=== PATIENT | male | born 1940 | race Caucasian/White ===

== ENCOUNTER 2019-08-08 16:11 | Inpatient (IN) ==
[2019-08-08] MEDS ORDERED: 0.9 % Sodium Chloride 500 ML IVC STA (16:26)
[2019-08-08] MEDS ORDERED: Piperacillin/Tazobactam 3.375 GM in 0.9 % Sodium Chloride Mini Bag 100 ML IVPB STA (16:42)
[2019-08-08 17:20] LABS: Basophils % 0.2 %; Eosinophils # 0.3 K/mcL (0.0-0.6); Eosinophils % 2.4 %; Hematocrit 44.9 % (37.5-50.1); Hemoglobin 13.8 g/dL (12.9-16.9); Immature Granulocytes % 0.8 % (0-4); Lymphocytes # 1.8 K/mcL (0.6-4.6); Lymphocytes % 14.8 %; Mean Corpuscular HGB Conc 30.7 g/dL (31.6-35.5); Mean Corpuscular Hemoglobin 27.6 pg (28.0-33.3); Mean Corpuscular Volume 89.8 fL (83.0-100.0); Mean Platelet Volume 11.2 fL (9.4-12.4); Monocytes # 1.2 K/mcL (0.0-1.3); Monocytes % 9.8 %; Neutrophils # 8.5 K/mcL (1.6-8.9); Platelet Count 275 K/mcL (140-400); Red Cell Distribution Width 16.6 % (11.5-14.5); White Blood Count 11.8 K/mcL (4.3-11.1)
[2019-08-08 17:21] LABS: Prothrombin Time 63.1 Seconds (9.4-12.1)
[2019-08-08 17:22] LABS: INR 5.5
[2019-08-08] MEDS ORDERED: Azithromycin 500 MG in 0.9 % Sodium Chloride 250 ML IVPB STA (17:26)
[2019-08-08 17:35] LABS: Alanine Aminotransferase 42 Units/L (7-52); Albumin 3.1 g/dL (3.5-5.7); Alkaline Phosphatase 97 Units/L (34-104); Aspartate Amino Transferase 31 Units/L (13-39); BUN/Creatinine Ratio 30 (6-26); Bilirubin,Direct 0.4 mg/dL (0.0-0.2); Bilirubin,Indirect 0.6 mg/dL (0.0-1.0); Blood Urea Nitrogen 41 mg/dL (8-23); Calcium 8.7 mg/dL (8.6-10.3); Carbon Dioxide 24 mEq/L (23-29); Chloride 108 mEq/L (98-107); Ethanol < 10 mg/dL (Less than 10); Globulin 3.2 g/dL (2.4-3.5); Glucose 119 mg/dL (70-105); Osmolality,Calculated 301 (280-300); Potassium 4.1 mEq/L (3.5-5.1); Sodium 140 mEq/L (136-145); Total Protein 6.3 g/dL (6.4-8.9); Troponin I 0.03 ng/mL (< 0.04); eGFR For African Americans > 60 (> 60); eGFR For Non-African Americans 51 (> 60)
[2019-08-08 18:05] LABS: Bilirubin,Urine Small (Negative); Blood,Urine Negative (Negative); Clarity,Urine Cloudy (Clear); Color,Urine Yellow (Yellow); Glucose,Urine (UA) Normal (Normal); Ketones,Urine Negative (Negative); Leukocyte Esterase,Urine Negative (Negative); Nitrite,Urine Negative (Negative); Protein,Urine Trace mg/dL (Neg-Trace); Specific Gravity,Urine 1.026 (1.010-1.025); Urobilinogen,Urine Normal (Normal)
[2019-08-08] MEDS ORDERED: Naloxone 0.4 MG/ML INJ IVP PRN (18:06)
[2019-08-08] MEDS ORDERED: Ondansetron 4 MG/2 ML VIAL IVP PRN (18:06)
[2019-08-08 18:09] LABS: Bacteria,Urine None Seen per hpf (None-Few); Hyaline Casts,Urine None Seen per lpf (None-Few); RBC,Urine 0-3 per hpf (0-3); Squamous Epithelial Cell,Urine Many per lpf (None-Few); WBC,Urine 0-3 per hpf (0-3)
[2019-08-08 18:10] LABS: Amphetamine Screen,Urine Negative ng/mL (Cutoff=1000); Barbiturate Screen,Urine Negative ng/mL (Cutoff=200); Benzodiazepines Screen,Urine Negative ng/mL (Cutoff=200); Cannabinoid Screen,Urine Negative ng/mL (Cutoff = 50); Cocaine Screen,Urine Negative ng/mL (Cutoff= 300); Opiate Screen,Urine Negative ng/mL (Cutoff=300); Phencyclidine Screen,Urine Negative ng/mL (Cutoff=25)
[2019-08-08] MEDS ORDERED: *HR* Dextrose 50 % in Water (Syg) 50 ML SYRINGE IVP PRN (18:12)
[2019-08-08] MEDS ORDERED: Dextrose Gel 15 GM/37.5 ML TUBE PO PRN ×2 (18:12)
[2019-08-08] MEDS ORDERED: D5% in Water 1,000 ML IVC PRN (18:12)
[2019-08-08] MEDS ORDERED: Ipratropium/Albuterol Neb 3 ML IH PRN (18:15)
[2019-08-08] MEDS ORDERED: 0.9 % Sodium Chloride 1,000 ML IVC SCH (18:15)
[2019-08-08] MEDS ORDERED: Aminoglycoside Consult 1 EACH MC ONE (19:00)
[2019-08-08] MEDS: Insulin LISPRO 300 UNITS/3 ML VIAL SQ SCH ×2 (20:15→20:16)
[2019-08-08] MEDS ORDERED: 0.9 % Sodium Chloride 1,000 ML IV ONE (20:30)
[2019-08-08 21:08] LABS: Adenovirus Not Detected (Not Detect); Bordetella Pertussis Not Detected (Not Detect); Chlamydophila pneumoniae Not Detected (Not Detect); Coronavirus 229E Not Detected (Not Detect); Coronavirus HKU1 Not Detected (Not Detect); Coronavirus NL63 Not Detected (Not Detect); Coronavirus OC43 Not Detected (Not Detect); Human Metapneumovirus Not Detected (Not Detect); Human Rhinovirus/Enterovirus Not Detected (Not Detect); Influenza A Subtype 2009 H1 Not Detected (Not Detect); Influenza B Not Detected (Not Detect); Mycoplasma pneumoniae Not Detected (Not Detect); Parainfluenza Virus 1 Not Detected (Not Detect); Parainfluenza Virus 2 Not Detected (Not Detect); Parainfluenza Virus 3 Not Detected (Not Detect); Parainfluenza Virus 4 Not Detected (Not Detect); Respiratory Syncytial Virus Not Detected (Not Detect)
[2019-08-08] MEDS: Metoprolol XL (24 HR) Succ 50 MG TAB.ER.24H PO SCH (21:53)
[2019-08-08] MEDS: Ipratropium/Albuterol Neb 3 ML IH SCH (21:54)
[2019-08-08] MEDS: *HR* Metoprolol 5 MG/5 ML VIAL IVP PRN (23:16)
[2019-08-09] MEDS: Piperacillin/Tazobactam 3.375 GM in 0.9 % Sodium Chloride Mini Bag 100 ML IVPB SCH ×4 (00:10→22:55)
[2019-08-09] MEDS: Ipratropium/Albuterol Neb 3 ML IH SCH ×4 (03:26→22:00)
[2019-08-09] MEDS: *HR* Metoprolol 5 MG/5 ML VIAL IVP PRN (03:30)
[2019-08-09 05:43] LABS: Basophils % 0.2 %; Eosinophils # 0.1 K/mcL (0.0-0.6); Eosinophils % 1.1 %; Hematocrit 44.1 % (37.5-50.1); Hemoglobin 13.5 g/dL (12.9-16.9); Immature Granulocytes % 0.6 % (0-4); Lymphocytes # 1.3 K/mcL (0.6-4.6); Lymphocytes % 10.5 %; Mean Corpuscular HGB Conc 30.6 g/dL (31.6-35.5); Mean Corpuscular Hemoglobin 27.8 pg (28.0-33.3); Mean Corpuscular Volume 90.9 fL (83.0-100.0); Mean Platelet Volume 11.6 fL (9.4-12.4); Monocytes # 1.3 K/mcL (0.0-1.3); Monocytes % 10.4 %; Neutrophils # 9.6 K/mcL (1.6-8.9); Platelet Count 262 K/mcL (140-400); Red Blood Count 4.85 M/mcL (4.19-5.50); Red Cell Distribution Width 16.7 % (11.5-14.5); Segmented Neutrophils % 77.2 %; White Blood Count 12.4 K/mcL (4.3-11.1)
[2019-08-09] MEDS: Metoprolol XL (24 HR) Succ 50 MG TAB.ER.24H PO SCH (05:48)
[2019-08-09 05:54] LABS: INR 3.3; Prothrombin Time 37.2 Seconds (9.4-12.1)
[2019-08-09 06:04] LABS: Calcium 8.3 mg/dL (8.6-10.3); Magnesium 1.6 mg/dL (1.6-2.6); Phosphorous 3.2 mg/dL (2.7-4.5); Potassium 4.1 mEq/L (3.5-5.1)
[2019-08-09] MEDS: 0.9 % Sodium Chloride 1,000 ML IVC SCH ×2 (07:42→16:27)
[2019-08-09] MEDS: Insulin LISPRO 300 UNITS/3 ML VIAL SQ SCH ×4 (07:42→20:33)
[2019-08-09] MEDS: Metoprolol XL (24 HR) Succ 25 MG TAB.ER.24H PO SCH (10:21)
[2019-08-09] MEDS ORDERED: Haloperidol Lactate 5 MG/ML VIAL IVP ONE (11:20)
[2019-08-09] MEDS: DilTIAZem 50 MG in 0.9 % Sodium Chloride 40 ML IVC SCH ×3 (12:23→22:49)
[2019-08-09] MEDS ORDERED: Haloperidol Lactate 5 MG/ML VIAL IVP PRN (13:06)
[2019-08-09] MEDS ORDERED: *HR* LORazepam 2 MG/ML VIAL IVP ONE (21:26)
[2019-08-09] MEDS ORDERED: Furosemide 20 MG/2 ML VIAL IVP ONE (21:45)
[2019-08-09] MEDS ORDERED: *HR* LORazepam 2 MG/ML VIAL IVP PRN (23:31)
[2019-08-09] MEDS ORDERED: *HR* LORazepam 2 MG/ML VIAL IM STA (23:44)
[2019-08-10 02:55] LABS: Hematocrit 44.1 % (37.5-50.1); Hemoglobin 13.5 g/dL (12.9-16.9); Mean Corpuscular HGB Conc 30.6 g/dL (31.6-35.5); Mean Corpuscular Hemoglobin 27.4 pg (28.0-33.3); Mean Corpuscular Volume 89.5 fL (83.0-100.0); Mean Platelet Volume 11.5 fL (9.4-12.4); Platelet Count 250 K/mcL (140-400); Red Blood Count 4.93 M/mcL (4.19-5.50); Red Cell Distribution Width 16.9 % (11.5-14.5); White Blood Count 11.9 K/mcL (4.3-11.1)
[2019-08-10 03:02] LABS: Prothrombin Time 22.9 Seconds (9.4-12.1)
[2019-08-10 03:17] LABS: Calcium 8.7 mg/dL (8.6-10.3); Magnesium 1.6 mg/dL (1.6-2.6)
[2019-08-10] MEDS: Ipratropium/Albuterol Neb 3 ML IH SCH ×4 (03:54→22:37)
[2019-08-10] MEDS: DilTIAZem 50 MG in 0.9 % Sodium Chloride 40 ML IVC SCH ×5 (03:54→23:21)
[2019-08-10 04:37] LABS: VBG HCO3 24 mEq/L (21-27); VBG PCO2 47 mmHg (41-51); VBG PH 7.32 pH Units (7.32-7.42); VBG PO2 75 mmHg (25-50)
[2019-08-10] MEDS ORDERED: Doxycycline 100 MG in 0.9 % Sodium Chloride Mini Bag 100 ML IVPB SCH (08:00)
[2019-08-10] MEDS: Insulin LISPRO 300 UNITS/3 ML VIAL SQ SCH ×4 (08:07→21:59)
[2019-08-10] MEDS: Piperacillin/Tazobactam 3.375 GM in 0.9 % Sodium Chloride Mini Bag 100 ML IVPB SCH ×3 (08:54→22:33)
[2019-08-10] MEDS: Loratadine 10 MG TABLET PO SCH (09:28)
[2019-08-10] MEDS: Metoprolol XL (24 HR) Succ 25 MG TAB.ER.24H PO SCH (09:29)
[2019-08-10] MEDS: Isosorbide MONOnitrate (24 HR) 30 MG TAB.ER.24H PO SCH (09:29)
[2019-08-10] MEDS ORDERED: Furosemide 40 MG/4 ML VIAL IVP ONE (16:07)
[2019-08-10 16:31] LABS: VBG HCO3 26 mEq/L (21-27); VBG PCO2 40 mmHg (41-51); VBG PH 7.42 pH Units (7.32-7.42); VBG PO2 179 mmHg (25-50)
[2019-08-10] MEDS: *HR* LORazepam 2 MG/ML VIAL IVP PRN (22:08)
[2019-08-10] MEDS: *HR* Metoprolol 5 MG/5 ML VIAL IVP PRN (23:40)
[2019-08-11] MEDS: DilTIAZem 50 MG in 0.9 % Sodium Chloride 40 ML IVC SCH ×2 (02:47→07:20)
[2019-08-11] MEDS: Levalbuterol Neb 1.25 MG/3 ML IH SCH ×4 (03:35→21:49)
[2019-08-11] MEDS: Ipratropium Neb 0.5 MG NEBULIZER IH SCH ×4 (03:35→21:49)
[2019-08-11] MEDS: *HR* LORazepam 2 MG/ML VIAL IVP PRN (03:52)
[2019-08-11 04:22] LABS: VBG HCO3 30 mEq/L (21-27); VBG PCO2 53 mmHg (41-51); VBG PH 7.37 pH Units (7.32-7.42); VBG PO2 64 mmHg (25-50)
[2019-08-11 04:23] LABS: Hematocrit 44.5 % (37.5-50.1); Hemoglobin 13.8 g/dL (12.9-16.9); Mean Corpuscular Hemoglobin 27.5 pg (28.0-33.3); Mean Corpuscular Volume 88.8 fL (83.0-100.0); Mean Platelet Volume 11.5 fL (9.4-12.4); Platelet Count 247 K/mcL (140-400); Red Blood Count 5.01 M/mcL (4.19-5.50); Red Cell Distribution Width 16.8 % (11.5-14.5); White Blood Count 12.4 K/mcL (4.3-11.1)
[2019-08-11 04:46] LABS: BUN/Creatinine Ratio 20 (6-26); Blood Urea Nitrogen 25 mg/dL (8-23); Calcium 8.2 mg/dL (8.6-10.3); Carbon Dioxide 29 mEq/L (23-29); Chloride 110 mEq/L (98-107); Glucose 151 mg/dL (70-105); Osmolality,Calculated 311 (280-300); Sodium 147 mEq/L (136-145); eGFR For African Americans > 60 (> 60); eGFR For Non-African Americans 54 (> 60)
[2019-08-11 04:50] LABS: ABG Base Excess 6 mEq/L (-2 to 3); ABG HCO3 31 mEq/L (21-27); ABG Oxygen Saturation 96 % (95-98); ABG PCO2 45 mmHg (35-45); ABG PH 7.45 pH Units (7.32-7.45); ABG PO2 81 mmHg (85-104); ABG TCO2 32 mEq/L (20-26); Blood Gas Modality BiLevel
[2019-08-11] MEDS: *HR* Metoprolol 5 MG/5 ML VIAL IVP PRN ×3 (05:31→22:41)
[2019-08-11] MEDS ORDERED: *HR* LORazepam 2 MG/ML VIAL IVP ONE (06:36)
[2019-08-11] MEDS ORDERED: *HR* LORazepam 2 MG/ML VIAL ONE (06:40)
[2019-08-11] MEDS ORDERED: Potassium Chloride 40 MEQ, Lidocaine 1% 2 ML in 0.9 % Sodium Chloride 500 ML IVPB ONE ×2 (07:20→17:00)
[2019-08-11] MEDS: Insulin LISPRO 300 UNITS/3 ML VIAL SQ SCH ×4 (08:37→20:54)
[2019-08-11] MEDS: Loratadine 10 MG TABLET PO SCH (08:44)
[2019-08-11] MEDS: Isosorbide MONOnitrate (24 HR) 30 MG TAB.ER.24H PO SCH (08:44)
[2019-08-11] MEDS ORDERED: *HR* Heparin 5,000 UNIT/ML VIAL IVP PRN ×2 (08:44)
[2019-08-11] MEDS: Metoprolol XL (24 HR) Succ 25 MG TAB.ER.24H PO SCH (08:44)
[2019-08-11] MEDS: Piperacillin/Tazobactam 3.375 GM in 0.9 % Sodium Chloride Mini Bag 100 ML IVPB SCH ×3 (08:58→23:55)
[2019-08-11 10:07] LABS: Heparin anti-factor XA UFH 0.08 IU/mL (0.30-0.70); INR 2.2; Prothrombin Time 25.4 Seconds (9.4-12.1)
[2019-08-11 10:10] LABS: Activated Partial Thrombo Time 28.8 Seconds (26.0-36.0)
[2019-08-11] MEDS: Heparin 25,000 UNIT/250 ML D5W 25,000 UNIT/250 ML IV.SOLN IVC SCH (11:14)
[2019-08-11] MEDS ORDERED: *HR* Digoxin 0.5 MG/2 ML AMPUL IVP SCH (13:40)
[2019-08-11] MEDS ORDERED: Amiodarone Premix 360 MG/200 ML BAG IVC ONE (13:56)
[2019-08-11 17:22] LABS: VBG HCO3 29 mEq/L (21-27); VBG PCO2 56 mmHg (41-51); VBG PH 7.32 pH Units (7.32-7.42); VBG PO2 59 mmHg (25-50)
[2019-08-11] MEDS: Amiodarone Premix 360 MG/200 ML BAG IVC SCH (22:19)
[2019-08-11] MEDS ORDERED: Furosemide 40 MG/4 ML VIAL IVP ONE (22:48)
[2019-08-12 03:50] LABS: VBG HCO3 27 mEq/L (21-27); VBG PCO2 53 mmHg (41-51); VBG PH 7.32 pH Units (7.32-7.42); VBG PO2 81 mmHg (25-50)
[2019-08-12] MEDS: Ipratropium Neb 0.5 MG NEBULIZER IH SCH ×4 (04:05→21:44)
[2019-08-12] MEDS: Levalbuterol Neb 1.25 MG/3 ML IH SCH ×4 (04:05→21:44)
[2019-08-12 04:08] LABS: Hematocrit 45.1 % (37.5-50.1); Hemoglobin 13.5 g/dL (12.9-16.9); Mean Corpuscular HGB Conc 29.9 g/dL (31.6-35.5); Mean Corpuscular Hemoglobin 27.8 pg (28.0-33.3); Mean Corpuscular Volume 92.8 fL (83.0-100.0); Mean Platelet Volume 11.8 fL (9.4-12.4); Platelet Count 253 K/mcL (140-400); Red Blood Count 4.86 M/mcL (4.19-5.50); Red Cell Distribution Width 17.3 % (11.5-14.5); White Blood Count 12.5 K/mcL (4.3-11.1)
[2019-08-12 04:22] LABS: BUN/Creatinine Ratio 17 (6-26); Blood Urea Nitrogen 20 mg/dL (8-23); Calcium 8.5 mg/dL (8.6-10.3); Carbon Dioxide 27 mEq/L (23-29); Chloride 109 mEq/L (98-107); Glucose 259 mg/dL (70-105); Magnesium 1.6 mg/dL (1.6-2.6); Osmolality,Calculated 318 (280-300); Potassium 3.7 mEq/L (3.5-5.1); Sodium 148 mEq/L (136-145); eGFR For African Americans > 60 (> 60); eGFR For Non-African Americans 60 (> 60)
[2019-08-12] MEDS ORDERED: D5% in 0.9% NACL w KCl 20 MEQ/1,000 ML MLS IVC SCH (08:30)
[2019-08-12] MEDS ORDERED: *HR* Digoxin 0.5 MG/2 ML AMPUL IVP SCH (09:00)
[2019-08-12] MEDS: Amiodarone Premix 360 MG/200 ML BAG IVC SCH ×2 (09:34→21:49)
[2019-08-12] MEDS: Piperacillin/Tazobactam 3.375 GM in 0.9 % Sodium Chloride Mini Bag 100 ML IVPB SCH ×3 (09:51→23:56)
[2019-08-12] MEDS: Isosorbide MONOnitrate (24 HR) 30 MG TAB.ER.24H PO SCH (09:53)
[2019-08-12] MEDS: Loratadine 10 MG TABLET PO SCH (09:53)
[2019-08-12] MEDS ORDERED: Heparin 25,000 UNIT/250 ML D5W 25,000 UNIT/250 ML IV.SOLN IVC SCH (10:45)
[2019-08-12] MEDS: *HR* Metoprolol 5 MG/5 ML VIAL IVP PRN (12:04)
[2019-08-12] MEDS: Insulin LISPRO 300 UNITS/3 ML VIAL SQ SCH ×3 (12:11→20:09)
[2019-08-12] MEDS: Heparin 25,000 UNIT/250 ML D5W 25,000 UNIT/250 ML IV.SOLN IVC SCH (20:08)
[2019-08-13] MEDS: Insulin LISPRO 300 UNITS/3 ML VIAL SQ SCH ×3 (00:02→12:56)
[2019-08-13] MEDS: *HR* Metoprolol 5 MG/5 ML VIAL IVP PRN ×2 (03:12→20:33)
[2019-08-13 03:31] LABS: Hematocrit 46.4 % (37.5-50.1); Hemoglobin 13.8 g/dL (12.9-16.9); Mean Corpuscular HGB Conc 29.7 g/dL (31.6-35.5); Mean Corpuscular Hemoglobin 27.4 pg (28.0-33.3); Mean Corpuscular Volume 92.2 fL (83.0-100.0); Mean Platelet Volume 12.2 fL (9.4-12.4); Platelet Count 228 K/mcL (140-400); Red Blood Count 5.03 M/mcL (4.19-5.50); Red Cell Distribution Width 17.5 % (11.5-14.5); White Blood Count 12.1 K/mcL (4.3-11.1)
[2019-08-13] MEDS: Ipratropium Neb 0.5 MG NEBULIZER IH SCH ×4 (03:38→22:07)
[2019-08-13] MEDS: Levalbuterol Neb 1.25 MG/3 ML IH SCH ×4 (03:38→22:07)
[2019-08-13 03:43] LABS: Calcium 8.7 mg/dL (8.6-10.3); Magnesium 2.1 mg/dL (1.6-2.6); Potassium 3.5 mEq/L (3.5-5.1)
[2019-08-13] MEDS: *HR* LORazepam 2 MG/ML VIAL IVP PRN ×2 (08:11→19:41)
[2019-08-13] MEDS: Isosorbide MONOnitrate (24 HR) 30 MG TAB.ER.24H PO SCH (10:33)
[2019-08-13] MEDS: Loratadine 10 MG TABLET PO SCH (10:33)
[2019-08-13] MEDS: Amiodarone Premix 360 MG/200 ML BAG IVC SCH (10:40)
[2019-08-13] MEDS: Morphine Sulfate Oral CONC 10 MG/0.5 ML ORAL.SYG SL PRN (10:55)
[2019-08-13] MEDS ORDERED: Furosemide 20 MG/2 ML VIAL IVP ONE (11:44)
[2019-08-13] MEDS: Morphine Sulfate 2 MG/ML SYRINGE IVP PRN ×2 (15:33→20:33)
[2019-08-13 20:49] VITALS: BP 119/84
[2019-08-13] MEDS ORDERED: Levalbuterol Neb 1.25 MG/3 ML IH PRN (23:14)
[2019-08-14] MEDS: Morphine Sulfate 2 MG/ML SYRINGE IVP PRN ×2 (00:42→05:20)
[2019-08-14] MEDS: *HR* LORazepam 2 MG/ML VIAL IVP PRN ×3 (00:42→07:38)
[2019-08-14] MEDS: Morphine Sulfate Oral CONC 10 MG/0.5 ML ORAL.SYG SL PRN (07:39)
== END 2019-08-14 08:54 | disposition expired | DRG 871 ==
LOC: 2ANU 16:11 → EMEROOARM 16:11 → 2ANU 19:45 → SUATTDRO 08-09 11:53 → 2NNU 08-11 14:56 → 2ANU 08-13 15:26
PROVIDERS: ADMIT Internal Medicine; ATTEND Internal Medicine